=== PATIENT | male | born 1990 | race African-American/Black ===

== ENCOUNTER 2016-11-17 12:40 | Outpatient (CLI) | payer OTHER ==
[2016-11-17 13:39] LABS: BASOPHILS # (AUTO) 0.3 K/uL (0.00-0.22); BASOPHILS % (AUTO) 4.6 % (0.0-2.0); EOSINOPHILS # (AUTO) 0.1 K/uL (0-0.4); EOSINOPHILS % (AUTO) 1.7 % (0.0-4.0); HEMATOCRIT 45.1 % (36-52); HEMOGLOBIN 14.8 g/dL (12.0-18.0); LYMPHOCYTES # (AUTO) 1.2 K/uL (2.0-11.5); LYMPHOCYTES % (AUTO) 16.8 % (20.5-51.1); MEAN CORPUSCULAR HEMOGLOBIN 30 pg (27-31); MEAN CORPUSCULAR HGB CONC 33 g/dL (33-37); MEAN CORPUSCULAR VOLUME 93 fL (80-94); MONOCYTES # (AUTO) 0.7 K/uL (0.8-1.0); MONOCYTES % (AUTO) 9.7 % (1.7-9.3); NEUTROPHILS # (AUTO) 5.1 K/uL (1.8-7.7); NEUTROPHILS % (AUTO) 67.2 % (42.2-75.2); PLATELET COUNT (AUTO) 220 K/uL (140-450); RED BLOOD CELL COUNT(AUTO) 4.86 MIL/uL (4.20-6.10); RED CELL DISTRIBUTION WIDTH 12.8 % (11.6-13.7); WHITE BLOOD COUNT (AUTO) 7.4 K/uL (4.8-10.8)
[2016-11-17 13:40] LABS: ALBUMIN 4.2 g/dL (3.4-5.0); ANION GAP 10.9 (8-16); CARBON DIOXIDE 30.6 mmol/L (21-32); CHOL/HDL RATIO 2.5 (1-4.5); POTASSIUM 4.5 mmol/L (3.5-5.1); TOTAL BILIRUBIN 0.7 mg/dL (0.0-1.0); TOTAL PROTEIN, SERUM 7.4 g/dL (6.4-8.2)
[2016-11-17 13:41] LABS: APPEARANCE,URINE CLEAR (CLEAR); BILIRUBIN,URINE NEGATIVE (NEGATIVE); BLOOD, URINE NEGATIVE (NEGATIVE); COLOR,URINE YELLOW (YELLOW); LEUKOCYTE ESTERASE ,URINE NEGATIVE (NEGATIVE); NITRITE, URINE NEGATIVE (NEGATIVE); PH,URINE 7.5 (5.0-9.0); PROTEIN,URINE NEGATIVE (NEGATIVE); UGLUCOSE NEGATIVE (NEGATIVE); UROBILINOGEN,URINE 0.2 EU/dL (0.2 - 1)
[2016-11-17 13:45] LABS: RBC,URINE 0-3 /HPF (0-5); SQUAMOUS EPITHELIAL CELL,UR None Seen /LPF (0-3 (FEW))
[2016-11-17 13:46] LABS: BACTERIA,URINE None Seen /HPF (None Seen); WBC,URINE 0-3 /HPF (0-5)
[2016-11-17 13:51] LABS: FREE T4 (FREE THYROXINE) 1.03 ng/dL (0.76-1.46)
[2016-11-17 14:49] LABS: THYROID STIMULATING HORMONE 1.64 uIU/mL (0.34-3.76)
[2016-11-18 09:08] LABS: HEMOGLOBIN A1C 4.9 % (4.8-5.6)
== END 2016-11-17 18:25 | disposition home or self-care (01) ==
LOC: MLB 12:40
PROVIDERS: ATTEND Internal Medicine
DX: Z00.00 Encounter for general adult medical examination without abnormal findings (principal); R05 Cough
CPT/HCPCS: 36415; 71010; 80053; 81001; 82306; 83036; 84439; 84443; 85025

== ENCOUNTER 2018-05-10 08:53 | Outpatient (CLI) | payer OTHER ==
[2018-05-10 09:47] LABS: BASOPHILS % (AUTO) 0.4 % (0.0-2.0); EOSINOPHILS # (AUTO) 0.1 K/uL (0-0.4); EOSINOPHILS % (AUTO) 1.5 % (0.0-4.0); HEMATOCRIT 46.8 % (36-52); HEMOGLOBIN 15.7 g/dL (12.0-18.0); LYMPHOCYTES # (AUTO) 1.5 K/uL (2.0-11.5); MEAN CORPUSCULAR HEMOGLOBIN 31 pg (27-31); MEAN CORPUSCULAR HGB CONC 34 g/dL (33-37); MEAN CORPUSCULAR VOLUME 92.4 fL (80-94); MONOCYTES # (AUTO) 0.7 K/uL (0.8-1.0); MONOCYTES % (AUTO) 10.2 % (1.7-9.3); NEUTROPHILS # (AUTO) 4.3 K/uL (1.8-7.7); NEUTROPHILS % (AUTO) 64.9 % (42.2-75.2); PLATELET COUNT (AUTO) 215 K/uL (140-450); RED BLOOD CELL COUNT(AUTO) 5.07 MIL/uL (4.20-6.10); RED CELL DISTRIBUTION WIDTH 13.3 % (11.6-13.7); WHITE BLOOD COUNT (AUTO) 6.6 K/uL (4.8-10.8)
[2018-05-10 10:17] LABS: APPEARANCE,URINE CLEAR (CLEAR); BILIRUBIN,URINE NEGATIVE (NEGATIVE); BLOOD, URINE NEGATIVE (NEGATIVE); COLOR,URINE YELLOW (YELLOW); LEUKOCYTE ESTERASE ,URINE NEGATIVE (NEGATIVE); NITRITE, URINE NEGATIVE (NEGATIVE); UGLUCOSE NEGATIVE (NEGATIVE)
[2018-05-10 11:06] LABS: ALBUMIN 4.9 g/dL (3.4-5.0); CHOL/HDL RATIO 2.5 (1-4.5); THYROID STIMULATING HORMONE 2.55 uIU/mL (0.34-3.74); TOTAL BILIRUBIN 0.9 mg/dL (0.0-1.0)
== END 2018-05-10 20:15 | disposition home or self-care (01) ==
LOC: MLB 08:53
PROVIDERS: ATTEND Internal Medicine
DX: I07.1 Rheumatic tricuspid insufficiency (principal); I27.20 Pulmonary hypertension, unspecified
CPT/HCPCS: 36415; 71046; 80053; 81003; 82306; 83036; 84443; 85025

== ENCOUNTER 2020-02-16 09:30 | Emergency (ER) | payer MEDICAID, SELFPAY ==
[~2020-02-16] VITALS: Ht 190.5 cm; Wt 136.1 kg
[2020-02-16 09:31] VITALS: BP 144/73
--- NOTE | 2020-02-16 09:37 | NUR ---
PT AMB TO BED 12.
--- NOTE | 2020-02-16 09:59 | NUR ---
EKG DONE BY ROGER WASHINGTON, CHARTED BY PATRICIA METZ. EKG READS SINUS ARRYTHMIA AT 63 BPMS.
[2020-02-16 10:55] LABS: BASOPHILS % (AUTO) 0.7 % (0.0-2.0); EOSINOPHILS # (AUTO) 0.1 K/uL (0-0.4); HEMOGLOBIN 14.9 g/dL (12.0-18.0); LYMPHOCYTES # (AUTO) 1.5 K/uL (2.0-11.5); LYMPHOCYTES % (AUTO) 22.1 % (20.5-51.1); MEAN CORPUSCULAR HEMOGLOBIN 31 pg (27-31); MEAN CORPUSCULAR HGB CONC 33 g/dL (33-37); MEAN CORPUSCULAR VOLUME 94.5 fL (80-94); MONOCYTES # (AUTO) 0.6 K/uL (0.8-1.0); MONOCYTES % (AUTO) 8.3 % (1.7-9.3); NEUTROPHILS # (AUTO) 4.5 K/uL (1.8-7.7); NEUTROPHILS % (AUTO) 66.9 % (42.2-75.2); PLATELET COUNT (AUTO) 198 K/uL (140-450); RED BLOOD CELL COUNT(AUTO) 4.76 MIL/uL (4.20-6.10); RED CELL DISTRIBUTION WIDTH 12.8 % (11.6-13.7); WHITE BLOOD COUNT (AUTO) 6.7 K/uL (4.8-10.8)
[2020-02-16 10:58] LABS: ALBUMIN 4.4 g/dL (3.4-5.0); ANION GAP 14.9 (8-16); CARBON DIOXIDE 26.2 mmol/L (21-32); CHOL/HDL RATIO 3.4 (1-4.5); FREE T4 (FREE THYROXINE) 1.11 ng/dL (0.76-1.46); POTASSIUM 4.1 mmol/L (3.5-5.1); THYROID STIMULATING HORMONE 1.38 uIU/mL (0.34-3.74); TOTAL BILIRUBIN 0.3 mg/dL (0.0-1.0)
--- NOTE | 2020-02-16 11:15 | NUR ---
covid swab collected and sent to lab
[2020-02-16 11:35] VITALS: BP 147/67
--- NOTE | 2020-02-16 11:35 | NUR ---
Patient discharged with v/s stable. Written and verbal after care instructions given and explained. Patient verbalized understanding. Ambulatory with steady gait. All questions addressed prior to discharge. Advised to follow up with PMD.
== END 2020-02-16 11:35 | disposition home or self-care (01) ==
LOC: EEVIPCON 09:30 → MED 09:30
DX: R06.00 Dyspnea, unspecified (principal); F12.90 Cannabis use, unspecified, uncomplicated; J45.909 Unspecified asthma, uncomplicated; Z02.89 Encounter for other administrative examinations; Z87.438 Personal history of other diseases of male genital organs; Z20.828 Contact with and (suspected) exposure to other viral communicable diseases
CPT/HCPCS: 36415; 71045; 80053; 80061; 83036; 84439; 84443; 85025; 93005; 99285; Q0092; U0003

== ENCOUNTER 2020-05-20 08:01 | Emergency (ER) | payer MEDICAID, SELFPAY ==
[~2020-05-20] VITALS: Ht 190.5 cm; Wt 146.5 kg
--- NOTE | 2020-05-20 08:05 | NUR ---
Pt ambulated to bed 12
[2020-05-20 08:12] VITALS: BP 198/89
--- NOTE | 2020-05-20 08:19 | NUR ---
29 Y/O MALE C/O TESTICULAR PAIN X5-6 DAYS, PT STATES HE WAS DX WITH AN EPIDIDYMAL CYST ABOUT 3 YEARS AGO, WELL TESTICULAR TORSION ABOUT 5 YEARS AGO. PATIENT STATES PAIN IS CONSISTENT AND IS A NAGGING PAIN. HAS BEEN MEDICATING WITH IBUPROFEN. DENIES DYSURIA, BUT STATES HE IS EXPERIENCING RETENTION AND DRIBBLING DURING URINATION. STATES HE IS HAVING MILD BLADDER PRESSURE. PAIN RADIATES TO LEFT LEG AND UP BACK ON LEFT SIDE. NKDA
[2020-05-20] MEDS ORDERED: KETOROLAC 30 MG/ML VIAL IM ONE (08:20)
--- NOTE | 2020-05-20 08:32 | NUR ---
ULTRASOUND AT BEDSIDE
[2020-05-20 09:36] LABS: BILIRUBIN,URINE NEGATIVE (NEGATIVE); BLOOD, URINE NEGATIVE (NEGATIVE); COLOR,URINE YELLOW (YELLOW); LEUKOCYTE ESTERASE ,URINE NEGATIVE (NEGATIVE); NITRITE, URINE NEGATIVE (NEGATIVE); PH,URINE 6.5 (5.0-9.0); UGLUCOSE NEGATIVE (NEGATIVE)
[2020-05-20 09:43] LABS: APPEARANCE,URINE SLIGHTLY HAZY (CLEAR)
[2020-05-20 09:57] VITALS: BP 198/89
== END 2020-05-20 09:57 | disposition home or self-care (01) ==
LOC: MED 08:01
DX: N50.3 Cyst of epididymis (principal); N50.812 Left testicular pain; F12.90 Cannabis use, unspecified, uncomplicated; J45.909 Unspecified asthma, uncomplicated
CPT/HCPCS: 76870; 81003; 96372; 99284; J1885; Q0092

== ENCOUNTER 2021-01-20 08:51 | Emergency (ER) | payer MEDICAID ==
[~2021-01-20] VITALS: Ht 190.5 cm; Wt 142.9 kg
[2021-01-20 08:55] VITALS: BP 147/108
--- NOTE | 2021-01-20 09:00 | NUR ---
PATIENT AMBULATED TO BED 01 WITH STEADY GAIT
--- NOTE | 2021-01-20 09:02 | NUR ---
30 Y/O MALE FROM HOME C/O SORE THROAT WITH PAINFUL SWALLOWING SINCE YESTERDAY. PT STATES WHITE SPOTS TO BACK OF THE THROAT. DENIES SOB/COUGH. PT HAS NOT RECEIVED COVID VACCINE. SKIN WARM, DRY, INTACT. POSITIONED FOR COMFORT. MEDHX: DENIES
--- NOTE | 2021-01-20 09:13 | NUR ---
DR CAMEJO AT BEDSIDE EXAMINING PATIENT
--- NOTE | 2021-01-20 09:27 | NUR ---
STREP SWAB COLLECTED AND WALKED TO LAB.
--- NOTE | 2021-01-20 09:30 | NUR ---
PATIENT AMBULATED TO RESTROOM FOR COLLECTION OF URINE.
[2021-01-20] MEDS ORDERED: NAPR-1704 PO (10:31)
[2021-01-20 10:35] VITALS: BP 147/108
== END 2021-01-20 10:36 | disposition home or self-care (01) ==
LOC: MED 08:51
DX: J02.9 Acute pharyngitis, unspecified (principal); J45.909 Unspecified asthma, uncomplicated; F12.90 Cannabis use, unspecified, uncomplicated; Z98.890 Other specified postprocedural states; Z79.899 Other long term (current) drug therapy
CPT/HCPCS: 36415; 87081; 99283